=== PATIENT | female | born 1965 | race Caucasian/White ===

== ENCOUNTER 2016-09-28 07:02 | Emergency (ER) | payer OTHER ==
[2016-09-28 07:14] VITALS: BP 154/94
--- NOTE | 2016-09-28 07:34 | UC ---
Andrew Arguelles Matthew[facility] on 09/28/16 at 0717 . Throat Pain/Nasal Rakan HPI - HPI Summary HPI Summary: Nurse's Note; Startes fever body aches on Sunday, now just sore throat. Difficulty swallowing. MD Note; Vital signs stable, afebrile, pulse noted at 103; 154/94 pulses oxygen 96%, 7/10 discomfort, no smoker, asthma Hx, no known allergies, medications include nasonex and albuterol. Previous visits non contributory to present compliant. In Room Note; A 51 y/o female presents to [facility] with a sore throat since 09/24/16. Associated symptoms on 09/24/16 included chills, fever, diffuse body aches, which have alleviated; however the patient continues to have sore throat, sinus congestion, rhionrrhea, and difficulty swallowing. The patient denies nausea, vomiting, diarrhea, and abdominal pain. The patient has not been around anyone else ill and she did not receive her flu shot this year. - History of Current Complaint Chief Complaint: UC Stated Complaint: SORE THROAT Time Seen by Provider: 09/28/16 07:14 Hx Obtained From: Patient Hx Last Menstrual Period: N/A ?: No Onset/Duration: Gradual Onset, Lasting Days, Still Present Severity: Moderate Pain Intensity: 7 Pain Scale Used: 0-10 Numeric Cough: None Associated Signs & Symptoms: Positive: Dysphagia, Nasal Discharge, Fever - since resolved, Other - sinus congestion, sore throat - Allergies/Home Medications Allergies/Adverse Reactions: Allergies Allergy/AdvReac Type Severity Reaction Status Date / Time No Known Allergies Allergy Verified 09/28/16 07:08 PMH/Surg Hx/FS Hx/Imm Hx Respiratory History Of: Reports: Asthma - Surgical History Surgical History: Yes Surgery Procedure, Year, and Place: uterine ablation - Family History Known Family History: Positive: Hypertension Family History: FHx of [place] - Social History Alcohol Use: None Substance Use Type: None Smoking Status (MU): Never Smoked Tobacco - Immunization History Most Recent Influenza Vaccination: none Review of Systems Constitutional: Fever - since resolved, Chills - since resolved Eyes: Negative ENT: Sore Throat, Nasal Discharge, Other - sinus congestion; difficulty swallowing Respiratory: Negative Cardiovascular: Negative Gastrointestinal: Negative Genitourinary: Negative Motor: Negative Neurovascular: Negative Musculoskeletal: Myalgia - Diffuse body aches - since resolved Neurological: Negative Psychological: Negative All Other Systems Reviewed And Are Negative: Yes Physical Exam Triage Information Reviewed: Yes Appearance: Well-Appearing, No Pain Distress, Well-Nourished Vital Signs: Initial Vital Signs Temp 97.3 F 09/28/16 07:10 Pulse 103 09/28/16 07:10 Resp 16 09/28/16 07:10 BP 154/94 09/28/16 07:10 Pulse Ox 96 09/28/16 07:10 Vital Signs Reviewed: Yes Eyes: Positive: Conjunctiva Clear ENT: Positive: Hearing grossly normal, Other: - Bilateral erythema on the posterior soft palate with exudate on the right. Negative: Muffled/hoarse voice Neck: Positive: Supple, No Lymphadenopathy Respiratory: Positive: Chest non-tender, Lungs clear, Normal breath sounds, No respiratory distress Cardiovascular: Positive: RRR. Negative: No Murmur Abdomen Description: Positive: Nontender, No Organomegaly, Soft Bowel Sounds: Positive: Present Musculoskeletal: Positive: Strength Intact, Other: - BLANCAS Neurological: Positive: Alert Psychological: Positive: Age Appropriate Behavior Skin: Negative: rashes Throat Pain/Nasal Course/Dx - Course Assessment/Plan: Discussed with the patient plan of care as well as the prescriptions to be given, amoxicillin, predinsone, and viscus lidocaine. - Differential Dx/Diagnosis Differential Diagnosis/HQI/PQRI: Other - viral pharyngitis vs STREP throat Provider Diagnoses: STREP throat Discharge - Discharge Plan Condition: Stable Disposition: HOME Prescriptions: Amoxicillin (*) 875 mg PO BID #20 tab MDD 2 Dexamethasone TAB* [Decadron TAB*] 4 mg PO DAILY #4 tab MDD 2 Lidocaine 2% VISCOUS* 5 ml MT BID #1 btl MDD 3 TIMES A DAY Patient Education Materials: Strep Throat (ED) Forms: *Work Release Referrals: Luz Paez MD [Primary Care Provider] - Additional Instructions: WE DISCUSSED: YOU HAVE STREP THROAT. KEEP THROAT MOIST WITH LOZENGES; TEA AND HONEY. USE WARM WATER GARGLES 3-4 TIMES A DAY. CEPASTAT LOZENGES FOR MODERATE PAIN. TYLENOL FOR DISCOMFORT. USEFUL HOME REMEDIES: WARM WATER GARGLES, WITH TSP OF SALT PER 8 OUNCES OF WATER, GARGLE FOR A FEW SECONDS AND SPIT OUT; GARGLE AND SPIT OUT; EVERY THREE HOURS. AND/OR: WARM WATER OR TEA, HONEY AND LEMON; 2-3 CUPS A DAY. FOLLOW UP IN 10 DAYS NEEDED. SOONER IF INCREASED PAIN, TEMPERATURE, DIFFICULTY BREATHING OR SWALLOWING. AMOXICILLIN, ONE PILL TWICE A DAY FOR TEN DAYS. VISCOUS XYLOCAINE 2% #100CC SI ML WITH 15ML WATER GARGLES ONE TO THREE TIMES A DAY . GARGLE AND SPIT OUT. Dexamethasone tab 4 mg Label: two tablets daily FOR TWO DAYS Disp: 4 The documentation as recorded by the Andrew martinez Matthew accurately reflects the service I personally performed and the decisions made by , Ian Ruiz MD.
== END 2016-09-28 07:37 | disposition home or self-care (01) ==
LOC: UCEAST 07:02
DX: J02.0 Streptococcal pharyngitis (principal)
CPT/HCPCS: 87651; 99212; G0463

== ENCOUNTER 2017-08-10 07:02 | Emergency (ER) | payer OTHER ==
[2017-08-10 07:17] VITALS: BP 181/92
--- NOTE | 2017-08-10 07:37 | UC ---
Knee Pain HPI - HPI Summary HPI Summary: 52 yo female with right knee pain x months She thinks it started after a fall occasionally swells natalee at times hard to manage stairs hurts when fully extended - History of Current Complaint Chief Complaint: UCLowerExtremity Stated Complaint: KNEE INJURY Time Seen by Provider: 08/10/17 07:22 Hx Obtained From: Patient Hx Last Menstrual Period: Ablasion Onset/Duration: Gradual Onset, Lasting Hours, Lasting Weeks Severity Currently: Mild Pain Intensity: 4 Pain Scale Used: 0-10 Numeric Character: Sharp, Aching Aggravating Factor(s): Movement, Weight Bearing, Prolonged Standing, Stairs Alleviating Factor(s): Rest, OTC Meds Associated Signs And Symptoms: Positive: Swelling Able to Bear Weight: Yes - Allergies/Home Medications Allergies/Adverse Reactions: Allergies Allergy/AdvReac Type Severity Reaction Status Date / Time No Known Allergies Allergy Verified 08/10/17 07:18 Home Medications: Home Medications Fluticasone NASAL SPRAY 50MCG* [Flonase NASAL SPRAY 50MCG*] 1 spray NASAL DAILY 08/10/17 [History Confirmed 08/10/17] Ibuprofen [Advil] 600 mg PO Q8HR PRN 08/10/17 [History Confirmed 08/10/17] PMH/Surg Hx/FS Hx/Imm Hx Previously Healthy: Yes - Surgical History Surgical History: Yes Surgery Procedure, Year, and Place: uterine ablation - Family History Known Family History: Positive: Hypertension Family History: FHx of [place] - Social History Alcohol Use: Rare Substance Use Type: None Smoking Status (MU): Never Smoked Tobacco - Immunization History Most Recent Influenza Vaccination: NOT UTD Review of Systems Constitutional: Negative Skin: Negative Eyes: Negative ENT: Negative Respiratory: Negative Cardiovascular: Negative Gastrointestinal: Negative Genitourinary: Negative Motor: Negative Neurovascular: Negative Musculoskeletal: Arthralgia Neurological: Negative Psychological: Negative Is Patient Immunocompromised?: No All Other Systems Reviewed And Are Negative: Yes Physical Exam Triage Information Reviewed: Yes Appearance: Well-Appearing, No Pain Distress, Well-Nourished, Other: - BMI 46 Vital Signs: Initial Vital Signs Temp 96.4 F 08/10/17 07:12 Pulse 74 08/10/17 07:12 Resp 16 08/10/17 07:12 BP 181/92 08/10/17 07:12 Pulse Ox 99 08/10/17 07:12 Eyes: Positive: Conjunctiva Clear ENT: Positive: Hearing grossly normal. Negative: Nasal congestion, Nasal drainage, Trismus, Muffled voice, Hoarse voice Neck: Positive: Supple Respiratory: Positive: Normal breath sounds, No respiratory distress, No accessory muscle use Cardiovascular: Positive: RRR, No Murmur Musculoskeletal: Positive: ROM Intact - both right knee and right hip, No Edema , Other: - no effusion/stable joint Neurological: Positive: Alert Psychological Exam: Normal Skin Exam: Normal Diagnostics - Radiology No standard instances Xray Interpretation: No Acute Changes - DJD Radiology Interpretation Completed By: ED Physician - offical reading pending at time of D/C Knee Pain Course/Dx - Differential Dx/Diagnosis Provider Diagnoses: Right knee DJD. suspect meniscal tear Discharge - Discharge Plan Condition: Stable Disposition: HOME Patient Education Materials: Meniscus Tear (ED) Referrals: Luz Paez MD [Primary Care Provider] - 2 Weeks (for recheck of BP (was high today)) Danuta Heredia MD [Medical Doctor] - As Soon As Possible Additional Instructions: aleve 2 twice daily
--- NOTE | 2017-08-10 08:08 | RAD ---
Indication: Right knee pain. 4 views of the right knee demonstrates no fracture. No joint effusion is noted. Degenerative changes of the patellofemoral joint is noted. IMPRESSION: Degenerative changes of the patellofemoral joint without fracture.
== END 2017-08-10 08:06 | disposition home or self-care (01) ==
LOC: UCEAST 07:02
DX: M17.11 Unilateral primary osteoarthritis, right knee (principal); R03.0 Elevated blood-pressure reading, without diagnosis of hypertension
CPT/HCPCS: 99211; G0463

== ENCOUNTER 2017-09-18 06:02 | Day surgery (SDC) | payer OTHER ==
--- NOTE | 2017-09-07 07:32 | HP ---
HISTORY AND PHYSICAL: DATE OF SURGERY: 09/18/17 DATE OF OFFICE VISIT: 09/05/17 SURGEON: Nancy Alexander MD * (DICTATED BY JIM SAINI) PROCEDURE: Right knee arthroscopy with partial medial meniscectomy, possible chondroplasty, possible synovectomy. CHIEF COMPLAINT: Right knee pain. HISTORY OF PRESENT ILLNESS: Ms. Hinkle is a 52-year-old female with continued complaints of right medial knee pain. An MRI confirmed meniscus tear. She has elected to proceed with surgery. PAST MEDICAL HISTORY: Denies. PAST SURGICAL HISTORY: Uterine ablation. CURRENT MEDICATIONS: None. ALLERGIES: None. FAMILY HISTORY: Cancer, diabetes. SOCIAL HISTORY: She is a 52-year-old female. She lives alone. She does not smoke, use drugs. Usually, occasional alcohol. 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 REVIEW OF SYSTEMS: A complete 14-point review of systems was reviewed with the patient. It was positive for mild childhood asthma. PHYSICAL EXAMINATION GENERAL: She is well developed, well nourished, in no acute distress. VITAL SIGNS: She stands 5 feet 6 inches tall, weighs 290 pounds. Her blood pressure is 144/86, her heart rate is 80. HEENT: Normocephalic, atraumatic. NECK: Supple. No palpable lymph nodes. PULMONARY: Lungs are clear to auscultation bilaterally. CARDIO: Regular rate and rhythm. Strong S1, S2. ABDOMEN: Soft, nontender, nondistended. NEUROLOGICAL: She is alert and oriented x3. Cranial nerves II through XII are intact. MUSCULOSKELETAL: Right lower extremity, skin is intact. There are no open wounds or abrasions. There is mild joint effusion. She has some tenderness over the medial joint line. Positive Reggie's. Positive Apley's. No varus or valgus instability. Negative Rama's. 5/5 lower extremity strength. 2+ dorsalis pedis pulses and intact sensation. ASSESSMENT AND PLAN: Ms. Hinkle is a 52-year-old female with complaints of right knee pain. An MRI confirms a medial meniscus tear and she has elected to proceed with right knee arthroscopy with partial medial meniscectomy, possible chondroplasty, possible synovectomy. Surgery is scheduled for 09/18/[address] Alexander discussed the risks and benefits of the surgery at today' s visit and all of her questions were answered. She will follow up with Dr. Alexander in 2 weeks after the surgery. JIM SAINI [id number]/[facility] #: [id number] MTDYonis
[~2017-09-18 06:02] MED LIST: Buffered Lidocaine 0.9% SYRIN* 5 ML/SYR SYRINGE INTRADERM ONE; Dexamethasone IV* 4 MG/ML 1 ML (4 MG) IV SLOW PU ONE; Famotidine IV* 10 MG/ML 2 ML (20 mg) IV ONE; Sodium Citrate/Citric Acid* 15 ML UDC PO ONE
[2017-09-18] MEDS ORDERED: Dexamethasone IV* 4 MG/ML 1 ML (4 MG) ONE (06:15)
[2017-09-18] MEDS ORDERED: ceFAZolin 1 GM in Dextrose (*) 1 GM/50 ML BAG IVPB ONE (06:15)
[2017-09-18] MEDS ORDERED: Famotidine IV* 10 MG/ML 2 ML (20 mg) ONE (06:15)
[2017-09-18] MEDS ORDERED: ceFAZolin 2 GM PREMIX (*) 2 GM/50 ML BAG IVPB ONE (06:15)
[2017-09-18] MEDS ORDERED: Sodium Citrate/Citric Acid* 15 ML UDC ONE (06:15)
[2017-09-18] MEDS ORDERED: Naloxone* 0.4 MG/ML 1 ML VIAL IV PRN (06:40)
[2017-09-18] MEDS ORDERED: oxyCODONE/Acetamin 5/325 MG* TAB PO PRN (06:40)
[2017-09-18] MEDS ORDERED: Ondansetron INJ* 2 MG/ML VIAL IV PRN (06:40)
[2017-09-18] MEDS ORDERED: HYDROmorphone INJ* 1 MG/ML CARPUJECT SYRINGE IV PRN (06:40)
[2017-09-18] MEDS ORDERED: Scopolamine 1.5 mg* PATCH TRANSDERM PRN (06:40)
[2017-09-18] MEDS ORDERED: fentaNYL* 50 MCG/ML 2 ML VIAL (100 MCG VIAL) IV PRN (06:40)
[2017-09-18] MEDS ORDERED: fentaNYL* 50 MCG/ML 2 ML VIAL (100 MCG VIAL) ONE (06:58)
[2017-09-18] MEDS ORDERED: Midazolam* 1 MG/ML 2 ML VIAL (2 MG) ONE ×2 (06:58→08:19)
[2017-09-18] MEDS ORDERED: Rocuronium* 10 MG/ML VIAL ONE (07:00)
[2017-09-18] MEDS ORDERED: Bupivacaine 0.5% SDV PF* 10-30ML VIAL ONE (07:01)
[2017-09-18] MEDS ORDERED: methylPREDNISolone ACETATE 80* 80 MG/ML 1 ML VIAL ONE (07:01)
[2017-09-18] MEDS ORDERED: EPINEPHRINE 1 MG/ML 1 ML VIAL ONE (07:01)
[2017-09-18] MEDS ORDERED: Ketorolac INJ* 30 MG/ML 1 ML VIAL ONE (08:55)
[2017-09-18] MEDS ORDERED: oxyCODONE/Acetamin 5/325 MG* TAB ONE (09:10)
[2017-09-18 10:16] VITALS: BP 137/81
--- NOTE | 2017-09-19 05:46 | OP ---
DATE OF OPERATION: 09/18/17 - [facility] DATE OF : 65 SURGEON: Nancy Alexander MD MACHINE FARMWORKER: JIM Robert. Kendall did help throughout the procedure with preparation of the leg, wound retraction, manipulation of the knee, and wound closure. ANESTHESIOLOGIST: Dr. Mckoy ANESTHESIA: Spinal. PRE-OP DIAGNOSES: Right knee kids-un-eppjixpe osteoarthritis, parrot-beak type tear of the posterior medial meniscus. POST-OP DIAGNOSES: Right knee severe degenerative osteoarthritis in the medial and patellofemoral compartment, parrot beak type tear of the posterior medial meniscus, anterior synovitis. OPERATIVE PROCEDURE: Right knee arthroscopy with partial medial meniscectomy, anterior synovectomy, medial and patellofemoral compartment chondroplasty. COMPLICATIONS: None. SPECIMENS: None. ESTIMATED BLOOD LOSS: Less than 25 cc. BRIEF HISTORY/INDICATION: Ms. Hinkle is a 52-year-old female with a recent onset of mechanical symptoms in the right knee after a fall down some stairs. She did have a traumatic tear of the medial meniscus and this was confirmed on MRI. Plain film showed some arthritic changes in the knee joint. She failed conservative treatment and wished to proceed with right knee arthroscopy with partial medial meniscectomy and possible chondroplasty due to continued pain and decreased quality of life. Informed consent was obtained from the patient. She understood the risks of surgery included but were not limited to bleeding, infection, damage to nearby structures, continued pain, need for further surgery, re-tear of the meniscus, progression of the arthritis and pain, stroke, heart attack, blood clot, and . She wished to proceed. INTRAOPERATIVE FINDINGS: Intraoperatively, the patient was noted to have some anterior synovitis. Parrot beak tear of the medial meniscus involving the posterior one-third of the medial meniscus. She had Outerbridge type 3 and 4 cartilage fraying with exposed subchondral bone in all 3 compartments. This involved the weightbearing surface of the medial femoral condyle and medial tibial plateau. The femoral trochlear groove and patellar medial/lateral facet showed exposed subchondral bone. A small area of the lateral femoral condyle had cartilage flapping with exposed subchondral bone. This was much more advanced arthritis than was noted on plain films. DESCRIPTION OF PROCEDURE: Ms. Hinkle was identified in the preanesthesia unit. Her right lower extremity was marked as the correct operative side. Informed consent was signed and placed in the chart. The patient was taken to the operating room and placed under spinal anesthesia. Right lower extremity was prepped and draped in the usual sterile fashion. Preop time-out was made to correctly identify the patient, side, and site. Appropriate perioperative antibiotics were given within 1 hour of incision. A 1.5 cm anterolateral portal incision was made with a 15-blade and carried down through the capsule. Trocar was introduced. As soon as the light and water sources were turned on, there was immediate visualization of the suprapatellar pouch. A tour of the knee joint was performed. Suprapatellar pouch had no obvious abnormalities. Patellofemoral compartment showed exposed subchondral bone along the patellar facet both medially and laterally as well as the trochlear groove of the femur. These were grade 3 and 4 Outerbridge cartilage changes with cartilage flapping and fraying. Medial gutter showed no significant plica or loose body. Medial compartment of the knee showed exposed subchondral bone along the medial femoral condyle and medial tibial plateau. There was a parrot beak type tear in the posterior one-third of the medial meniscus involving mainly the white-red zone. ACL and PCL appeared to be intact. The knee was placed in a [id number] position. Lateral meniscus appeared to be intact. There was a small area on the lateral femoral condyle with grade 3 Outerbridge cartilage changes with cartilage flapping and small amounts of exposed subchondral bone. Lateral gutter showed no obvious loose body or plica. Under direct visualization, a medial portal incision was made. Anterior synovitis was cleared using a shaver and radiofrequency ablation wand. This afforded a better view of the knee. A straight biter and shaver were used to perform partial medial meniscectomy. The parrot beak type tear did displace anteriorly. Partial medial meniscectomy was performed in the white-red zone. A smooth border of the meniscus was obtained. A probe was used to ensure there was no further displaced meniscal fragments and this was confirmed. Radiofrequency ablation wand was used to further smooth the edge of the medial meniscus. Next, the radiofrequency ablation wand was used to smooth any cartilage flaps along the medial tibial plateau and medial femoral condyle. There was a significant amount of exposed subchondral bone in these weightbearing portions. The patellofemoral compartment was then addressed. Radiofrequency ablation wand was used to smooth any cartilage flapping along the trochlear groove of the femur as well as the medial and lateral patellar facet. The knee was copiously irrigated with sterile saline. All instruments were removed. Incisions were closed using interrupted 3-0 nylon suture. An intraarticular injection of 80 mg Depo-Medrol and 6 cc of 0.25% Marcaine was placed in the knee joint. The incisions were covered with sterile Xeroform, 4x4s, and Webril. Chandan wrap and cold pack were placed over this. The patient's anesthesia was reversed without difficulty. She was taken to the PACU in stable condition. Intended weightbearing will be weightbearing as tolerated. Intended DVT prophylaxis will be aspirin for 2 weeks. [id number]/[facility] #: [id number] BERNIE
[2017-09-21] MEDS ORDERED: Scopolamine PATCH Remove* 1 NOTE MISC PATCH OFF ONE (06:41)
== END 2017-09-18 10:13 | disposition home or self-care (01) ==
LOC: OR 06:02
PROVIDERS: ATTEND Orthopaedic Surgery Adult Reconstructive Orthopaedic Surgery
DX: S83.241A Other tear of medial meniscus, current injury, right knee, initial encounter (principal); M17.11 Unilateral primary osteoarthritis, right knee; W10.9XXA Fall (on) (from) unspecified stairs and steps, initial encounter; Y92.9 Unspecified place or not applicable; E66.01 Morbid (severe) obesity due to excess calories
CPT/HCPCS: A9270-GY; J0690; J1040; J1100; J1885; J2250; J3010

== ENCOUNTER 2018-08-16 14:59 | Emergency (ER) | payer OTHER ==
[2018-08-16 15:14] VITALS: BP 147/89
--- NOTE | 2018-08-16 16:07 | UC ---
Upper Extremity HPI - HPI Summary HPI Summary: 53-year-old female presents with left wrist pain after tripping and falling this morning onto an outstretched arm. Complaining of ulnar wrist pain with some mild bruising and swelling. States pain is a constant ache that worsens with any movement at the wrist. Denies weakness, numbness, or tingling. - History of Current Complaint Chief Complaint: UCUpperExtremity Stated Complaint: WRIST INJURY Time Seen by Provider: 08/16/18 15:32 Hx Obtained From: Patient Hx Last Menstrual Period: Ablasion Pain Intensity: 7 - Allergies/Home Medications Allergies/Adverse Reactions: Allergies Allergy/AdvReac Type Severity Reaction Status Date / Time No Known Allergies Allergy Verified 08/16/18 15:14 PMH/Surg Hx/FS Hx/Imm Hx Previously Healthy: Yes - Denies significant PMH - Surgical History Surgical History: Yes Surgery Procedure, Year, and Place: uterine ablation, [facility] - Family History Known Family History: Positive: Hypertension Family History: FHx of [place] - Social History Occupation: Employed Full-time Lives: With Family Alcohol Use: None Alcohol Amount: holidays Substance Use Type: None Smoking Status (MU): Never Smoked Tobacco - Immunization History Most Recent Influenza Vaccination: NOT UTD Review of Systems All Other Systems Reviewed And Are Negative: Yes Skin: Positive: Bruising Respiratory: Negative: Shortness Of Breath Cardiovascular: Negative: Palpitations, Chest Pain Motor: Negative: Weakness Neurovascular: Negative: Decreased Sensation Musculoskeletal: Positive: Decreased ROM, Other: - See HPI Neurological: Negative: Headache, Other - dizziness, syncope Is Patient Immunocompromised?: No Physical Exam - Summary Physical Exam Summary: GENERAL APPEARANCE: Well developed, well nourished, alert and cooperative, and appears to be in no acute distress. HEAD: Atraumatic. normocephalic. NECK: Neck supple, non-tender. CARDIAC: Normal S1 and S2. No S3, S4 or murmurs. Rhythm is regular. There is no peripheral edema, cyanosis or pallor. Extremities are warm and well perfused. LUNGS: Clear to auscultation and percussion without rales, rhonchi, wheezing or diminished breath sounds. ABDOMEN: Positive bowel sounds. Soft, nondistended, nontender. No guarding or rebound. No masses or hepatosplenomegally. MUSKULOSKELETAL: Mild tenderness to ulnar wrist with mild ecchymosis. No gross deformity. ROM limited by pain. Peripheral pulses intact. Capillary refill is less than 2 seconds. BACK: Examination of the spine reveals normal gait and posture, no spinal deformity or tenderness, decreased range of motion or muscular spasm. NEUROLOGICAL: Strength and sensation symmetric and intact. SKIN: General skin exam reveals normal color, texture and turgor with no lesions or eruptions. Triage Information Reviewed: Yes Vital Signs: Initial Vital Signs Temp 99.8 F 08/16/18 15:08 Pulse 114 08/16/18 15:08 Resp 18 08/16/18 15:08 BP 147/89 08/16/18 15:08 Pulse Ox 96 08/16/18 15:08 Vital Signs Reviewed: Yes Diagnostics - Radiology No standard instances Radiology Interpretation Completed By: Radiologist Summary of Radiographic Findings: Patient Name: ELINOR BLANC Medical Record#: [id number]. Ordering Physician: Adonay Pichardo NP Acct.#: [id number]. : 1965 Age: 53 Sex: F Location: [facility]. Exam Date: 08/16/181534 ADM Status: REG ER. Order Information: WRIST LEFT 3+ VWS. Accession Number: [id number]. CPT: 43362. HISTORY: pain s/p fall on outstretched arm. COMPARISONS: None. VIEWS: 3 , Frontal, lateral, and oblique views of the left wrist. FINDINGS: BONE DENSITY: Normal. BONES: There is no displaced fracture. JOINTS: There is mild osteoarthritis of the radial head articulation and STT articulation. ALIGNMENT: There is no dislocation. SOFT TISSUES: Unremarkable. OTHER FINDINGS: None. IMPRESSION: NO ACUTE OSSEOUS INJURY. IF SYMPTOMS PERSIST, RECOMMEND REPEAT IMAGING. Upper Extremity Course/Dx - Course Course Of Treatment: 53-year-old female presents with left wrist pain after tripping and falling this morning onto an outstretched arm. Complaining of ulnar wrist pain with some mild bruising and swelling. States pain is a constant ache that worsens with any movement at the wrist. Denies weakness, numbness, or tingling. Exam revealed mildly tender ulnar wrist with mild ecchymosis and no gross deformity. Pulses normal. Cap refill less than 2 seconds. Sensation intact. X-ray was negative for fracture or dislocation. Patient was placed in a cock up wrist splint by the RN. Her vascular and sensory exam post splint placement remained unchanged from previous. Recommending naproxen 500 mg twice a day as needed for pain, as well as RICE. She is to follow-up with orthopedic surgery in 7 days if symptoms persist. Warning symptoms were reviewed with the patient. She verbalizes understanding and agrees with plan of care. - Differential Dx/Diagnosis Differential Diagnosis/HQI/PQRI: Contusion, Fracture (Closed), Strain, Sprain Provider Diagnosis: Left wrist sprain Discharge - Sign-Out/Discharge Documenting (check all that apply): Patient Departure All imaging exams completed and their final reports reviewed: Yes - Discharge Plan Condition: Stable Disposition: HOME Prescriptions: Naproxen [Naproxen 500 mg tab] 500 mg PO Q12HR #30 tablet Patient Education Materials: Wrist Sprain (ED) Referrals: Luz Paez MD [Primary Care Provider] - Damian Baca MD [Medical Doctor] - 7 Days (If no improvement in symptoms.) Additional Instructions: The x-ray performed in the clinic today showed no evidence of fracture. I suspect that you have a sprain of the wrist. Take naproxen 1 tab every 12 hours with food as needed for pain. Rest the arm as much as possible. No heavy lifting. Wear the splint that was provided to you until pain-free. May remove to shower but should wear at all other times. Apply ice to the affected area for 15-20 minutes at least 4 times a day for next few days. Keep the arm elevated at the level of your heart to reduce swelling. Follow up with Dr. Baca, orthopedic surgery, in 1 week if no improvement in symptoms. Seek immediate medical attention in the emergency room if you have severe pain that is not managed with pain medication, increased swelling, you develop weakness, numbness, or tingling in your hand or fingers, the hand or fingers turn pale or blue, or any worsening of symptoms. - Billing Disposition and Condition Condition: STABLE Disposition: Home
== END 2018-08-16 16:33 | disposition home or self-care (01) ==
LOC: UCEAST 14:59
DX: S63.502A Unspecified sprain of left wrist, initial encounter (principal); W01.0XXA Fall on same level from slipping, tripping and stumbling without subsequent striking against object, initial encounter; Y92.9 Unspecified place or not applicable
CPT/HCPCS: 99211; G0463

== ENCOUNTER → 2019-07-04 10:31 | Day surgery (SDC) | payer OTHER ==
[~2019-07-04 10:31] MED LIST changes: +Acetaminophen TAB* 325 MG ONE; +Acetaminophen TAB* 325 MG PO ONE; +Atracurium* 10 MG/ML 10 ML VIAL ONE; -Buffered Lidocaine 0.9% SYRIN* 5 ML/SYR SYRINGE INTRADERM ONE; +Buffered Lidocaine 1% SYRIN* 1 ML/SYRINGE INTRADERM ONE; +Bupivacaine 0.25% EPI 200,000* 30 ML SDV ONE; +Dexamethasone IV* 4 MG/ML 1 ML (4 MG) ONE; +DiMENhydriNATE IV* 50 MG/ML VIAL IV PUSH PRN; +Famotidine IV* 10 MG/ML 2 ML (20 mg) ONE; +HYDROmorphone INJ1* 1 MG/ML SYRINGE IV PRN; +Ketorolac INJ* 30 MG/ML 1 ML VIAL ONE; +Lactated Ringers 1000 ML Bag* 1,000 ML IV SCH; +Lidocaine 2% PF * 5 ML VIAL ONE; +Midazolam* 1 MG/ML 5 ML VIAL (5 MG) ONE; +Naloxone* 0.4 MG/ML 1 ML VIAL IV PRN; +Ondansetron INJ* 2 MG/ML VIAL IV PRN; +Ondansetron INJ* 2 MG/ML VIAL ONE; +Propofol* 10 MG/ML 20 ML BTL ONE; +Rocuronium* 10 MG/ML VIAL ONE; +Scopolamine 1.5 mg* PATCH TRANSDERM PRN; -Sodium Citrate/Citric Acid* 15 ML UDC PO ONE; +Sugammadex * 200 MG/2 ML VIAL IV PUSH ONE; +ceFAZolin 1 GM ADVAN(*) 1 GM ADDV.VIAL IVPB ONE; +ceFAZolin 2 GM in NS PREMIX(*) 2 GM/100 ML BAG IVPB ONE; +fentaNYL* 50 MCG/ML 2 ML VIAL (100 MCG VIAL) IV PRN; +fentaNYL* 50 MCG/ML 2 ML VIAL (100 MCG VIAL) ONE; +fentaNYL* 50 MCG/ML 5 ML VIAL (250 MCG VIAL) ONE; +oxyCODONE/Acetamin 5/325 MG* TAB PO PRN
[2019-07-04 16:54] VITALS: BP 133/105
--- NOTE | 2019-07-08 21:41 | OP ---
CC: Luisa Duron MD * DATE OF OPERATION: 07/04/19 - [facility] DATE OF : 65 SURGEON: Gagan Khan MD HISTOTECHNOLOGIST: JIM Boateng ANESTHESIOLOGIST: Walker Fletcher MD ANESTHESIA: General endotracheal. PRE-OP DIAGNOSIS: Cholelithiasis. POST-OP DIAGNOSIS: Cholelithiasis. OPERATIVE PROCEDURE: Laparoscopic cholecystectomy. ESTIMATED BLOOD LOSS: Minimal. IV FLUIDS: 1.5 L crystalloid. SPECIMEN: Gallbladder. DRAINS: None. COMPLICATIONS: None. COUNTS: Instrument, needle, and sponge count were correct. DESCRIPTION OF PROCEDURE: The patient was brought to the operating room and placed on the table supine. Sequential compression devices were placed on both lower extremities. General anesthesia was administered. The abdomen was prepped and draped in the usual sterile fashion and time-out was performed. Local anesthetic was infiltrated into the skin and soft tissue prior to making each incision. Entry into the abdomen was through a transumbilical vertical incision using an open technique. After accessing the peritoneal cavity, a 12- mm trocar was placed and carbon dioxide was insufflated to a pressure of 15 mmHg. Under direct visualization, 5 mm trocars were placed, one in the subxiphoid position and two in the right upper quadrant. Inspection revealed a fatty infiltrated liver. The gallbladder did not appear to have any acute inflammatory changes. It was grasped at the fundus and retracted cephalad. In doing so, a rent was made in the gallbladder and spillage of bile was controlled with endoscopic suction, which was used to empty the gallbladder. The infundibulum of the gallbladder was grasped and the peritoneum investing the gallbladder was incised sharply and dissected free using combination of blunt and sharp dissection. In this fashion by performing medial and lateral dissection, the cystic duct and cystic artery were each dissected out and critical view was obtained. Each structure was doubly clipped and divided. The gallbladder was freed from attachments to the liver bed using the scissors and cautery, staying in an avascular plane. Once the gallbladder was freed, it was placed into an endoscopic retrieval bag and retrieved through the umbilical site. Copious lavage was performed until clear. Clips were noted to be intact and hemostatic. The ports were then removed under direct visualization and carbon dioxide was released. The umbilical incision was closed with 0 Vicryl in a neeaxj-am-uceri fashion to approximate the fascia. Skin was closed with 4- 0 Monocryl in a subcuticular fashion and Steri-Strips were applied. The patient tolerated this procedure well, was extubated and transferred to the recovery room in stable condition. [id number]/[facility] #: [id number] BERNIE
== END | disposition home or self-care (01) ==
LOC: OR 10:31
PROVIDERS: ATTEND Surgery
PROC: 0FT44ZZ Resection of Gallbladder, Percutaneous Endoscopic Approach (ICD-10-PCS; principal; 2019-07-04 12:15)
DX: K80.10 Calculus of gallbladder with chronic cholecystitis without obstruction (principal); E66.01 Morbid (severe) obesity due to excess calories; J45.909 Unspecified asthma, uncomplicated; F10.21 Alcohol dependence, in remission; Z79.51 Long term (current) use of inhaled steroids; Z68.42 Body mass index [BMI] 45.0-49.9, adult
CPT/HCPCS: 88304; A9270-GY; J0690; J1100; J1885; J2250; J2405; J2704; J3010

== ENCOUNTER 2020-05-13 06:27 | Observation (INO) ==
[~2020-05-13 06:27] MED LIST changes: -Acetaminophen TAB* 325 MG ONE; -Acetaminophen TAB* 325 MG PO ONE; -Atracurium* 10 MG/ML 10 ML VIAL ONE; +Buffered Lidocaine 1% SYRIN 1 ml INTRADERM ONE; -Buffered Lidocaine 1% SYRIN* 1 ML/SYRINGE INTRADERM ONE; -Bupivacaine 0.25% EPI 200,000* 30 ML SDV ONE; +Dexamethasone IV 4 MG/ML VIAL 1 ml VIAL IV SLOW PU ONE; -Dexamethasone IV* 4 MG/ML 1 ML (4 MG) IV SLOW PU ONE; -Dexamethasone IV* 4 MG/ML 1 ML (4 MG) ONE; -DiMENhydriNATE IV* 50 MG/ML VIAL IV PUSH PRN; -Famotidine IV* 10 MG/ML 2 ML (20 mg) IV ONE; -Famotidine IV* 10 MG/ML 2 ML (20 mg) ONE; -HYDROmorphone INJ1* 1 MG/ML SYRINGE IV PRN; -Ketorolac INJ* 30 MG/ML 1 ML VIAL ONE; -Lactated Ringers 1000 ML Bag* 1,000 ML IV SCH; +Lactated Ringers 1000 ml BAG 1,000 ML IV SCH; -Lidocaine 2% PF * 5 ML VIAL ONE; -Midazolam* 1 MG/ML 5 ML VIAL (5 MG) ONE; -Naloxone* 0.4 MG/ML 1 ML VIAL IV PRN; -Ondansetron INJ* 2 MG/ML VIAL IV PRN; -Ondansetron INJ* 2 MG/ML VIAL ONE; -Propofol* 10 MG/ML 20 ML BTL ONE; -Rocuronium* 10 MG/ML VIAL ONE; -Scopolamine 1.5 mg* PATCH TRANSDERM PRN; -Sugammadex * 200 MG/2 ML VIAL IV PUSH ONE; -ceFAZolin 1 GM ADVAN(*) 1 GM ADDV.VIAL IVPB ONE; -ceFAZolin 2 GM in NS PREMIX(*) 2 GM/100 ML BAG IVPB ONE; -fentaNYL* 50 MCG/ML 2 ML VIAL (100 MCG VIAL) IV PRN; -fentaNYL* 50 MCG/ML 2 ML VIAL (100 MCG VIAL) ONE; -fentaNYL* 50 MCG/ML 5 ML VIAL (250 MCG VIAL) ONE; -oxyCODONE/Acetamin 5/325 MG* TAB PO PRN
[2020-05-13] MEDS ORDERED: ceFAZolin 1 GM ADVAN 1 GM ADDV.VIAL IVPB ONE (06:50)
[2020-05-13] MEDS ORDERED: Dexamethasone IV 4 MG/ML VIAL 1 ml VIAL ONE (06:50)
[2020-05-13] MEDS ORDERED: ceFAZolin 2 GM PREMIX 2 GM/50 ML BAG ONE (06:50)
[2020-05-13] MEDS ORDERED: Midazolam 5 mg/5 ml VIAL 1 mg/ml 5 ml VIAL (5 mg) ONE (06:52)
[2020-05-13] MEDS ORDERED: Rocuronium 50 mg VIAL 10 mg/ml 5 ml VIAL (50 mg) ONE (06:52)
[2020-05-13] MEDS ORDERED: fentaNYL 100 mcg/2 ml 50 MCG/ML VIAL ONE (06:52)
[2020-05-13] MEDS ORDERED: Propofol 10 mg/ml 100 ML BTL 100 ML ONE (06:53)
[2020-05-13] MEDS ORDERED: Lidocaine 2% PF 5 ML VIAL ONE (07:00)
[2020-05-13] MEDS ORDERED: ROPIVACAINE 5 MG/ML 30 ML BTL (0.5%) ONE ×2 (07:21→07:26)
[2020-05-13] MEDS ORDERED: Lidocaine 2% PF 10 ML AMP ONE (07:26)
[2020-05-13 07:54] LABS: Hematocrit 36 % (35-47); Hemoglobin 12.6 g/dL (12.0-16.0); Mean Corpuscular HGB Conc 35 g/dL (31-36); Mean Corpuscular Hemoglobin 31 pg (27-31); Mean Corpuscular Volume 88 fL (80-97); Mean Platelet Volume 7.1 fL (7.4-10.4); Platelet Count 242 10^3/uL (150-450); Red Blood Count 4.08 10^6 /uL (3.70-4.87); Red Cell Distribution Width 13 % (10-15); White Blood Count 4.8 10^3/uL (3.5-10.8)
[2020-05-13 08:00] LABS: ABS Eosinophils 0.1 10^3/ul (0-0.6); ABS Lymphocytes 1.7 10^3/ul (1.0-4.8); ABS Monocytes 0.3 10^3/ul (0-0.8); ABS Neutrophils 2.5 10^3/ul (1.5-7.7); Lymphocyte % 36.3 %; Nucleated Red Blood Cells % 0.1
[2020-05-13 08:12] LABS: Albumin 4.2 g/dL (3.2-5.2); Albumin/Globulin Ratio 1.6 (1-3); BUN/Creatinine Ratio 28.1 (8-20); Calcium 9.2 mg/dL (8.6-10.3); EGFR African American 116.6 (>60); EGFR Non-African American 96.3 (>60); Globulin 2.7 g/dL (2-4); Potassium 3.8 mmol/L (3.5-5.0); Total Bilirubin 0.5 mg/dL (0.2-1.0); Total Protein 6.9 g/dL (6.4-8.9)
[2020-05-13] MEDS ORDERED: Phenylephrine 40 mcg/mL 10mL (400mcg) SYRINGE ONE (08:48)
[2020-05-13] MEDS ORDERED: Propofol 10 MG/ML 20 ML BTL ONE (08:52)
[2020-05-13] MEDS ORDERED: fentaNYL 100 mcg/2 ml 50 MCG/ML VIAL IV PRN (10:09)
[2020-05-13] MEDS ORDERED: Naloxone 0.4 mg VIAL 0.4 mg/ml 1 ml VIAL IV PRN (10:09)
[2020-05-13] MEDS ORDERED: Ondansetron 4 mg VIAL 2 MG/ML 2 ml VIAL IV PRN ×2 (10:09→10:25)
[2020-05-13] MEDS ORDERED: HYDROmorphone 1 MG/1 ML SYRINGE IV PRN (10:09)
[2020-05-13] MEDS ORDERED: Morphine 2 MG/ML SYRINGE IV PRN (10:25)
[2020-05-13] MEDS ORDERED: diPHENhydraMINE IV 50 MG/ML 1 ml VIAL (BENADRYL) IV PRN (10:25)
[2020-05-13] MEDS ORDERED: Ondansetron ODT 4 mg TAB 4 MG TAB PO PRN (10:25)
[2020-05-13] MEDS ORDERED: Lactulose 30 ml UDC PO PRN (10:25)
[2020-05-13] MEDS ORDERED: Magnesium Hydroxide LIQ 30 ML UDC PO PRN (10:25)
[2020-05-13] MEDS ORDERED: diPHENhydraMINE 25 mg TAB PO PRN (10:25)
[2020-05-13] MEDS ORDERED: Lactated Ringers 1000 ml BAG 1,000 ML IV SCH (11:00)
[2020-05-13] MEDS: oxyCODONE/Acetamin 5/325 mg TAB PO PRN ×2 (13:16→17:13)
[2020-05-13 15:55] VITALS: BP 155/93
[2020-05-13] MEDS ORDERED: ceFAZolin 1 GM ADVAN 1 GM in NS 0.9% 50 ML 50 ML IVPB SCH (16:30)
[2020-05-13] MEDS ORDERED: Magnesium Hydroxide LIQ 30 ML UDC PO SCH (21:00)
[2020-05-14] MEDS ORDERED: Vitamin THERAPEUTIC TAB PO SCH (09:00)
== END 2020-05-13 18:10 | disposition home or self-care (01) ==
LOC: OR 06:27 → SSU 06:27
PROVIDERS: ADMIT Physician Assistant; ATTEND Orthopaedic Surgery Adult Reconstructive Orthopaedic Surgery